=== PATIENT | male | born 1960 | race Two or more races ===

== ENCOUNTER 2021-04-26 06:44 | Inpatient (IN) | payer OTHER ==
[~2021-04-26] VITALS: Ht 175.3 cm; Wt 102.0 kg
[2021-04-26] MEDS ORDERED: FUROSEMIDE 40 MG/4 ML VIAL IV ONE ×2 (07:30→17:30)
[2021-04-26 08:20] LABS: Hematocrit 34.6 % (41.0-53.0); Mean Corpuscular Hemoglobin 27.7 pg (28.0-32.0); Mean Corpuscular Hgb Conc. 31.8 g/dL (32.0-36.0); Mean Corpuscular Volume 87.2 fL (80.0-100.0); Red Blood Cells 3.96 10^6/uL (4.5-5.90); Red Cell Distribution Width 17.7 % (11.8-14.3); White Blood Cell 14.2 10^3/uL (4.4-10.8)
[2021-04-26 08:26] LABS: Basophils % (manual) 0 (0.0-2.0); Blast Cells 0; Eosinophils % (manual) 0 (0-7); Metamyelocytes % 0; Myelocytes % 0; Promyelocytes % 0; Reactive Lymphocytes 0
[2021-04-26 08:36] LABS: Albumin 2.8 g/dL (3.4-5.0); Potassium 4.6 mmol/L (3.5-5.1)
[2021-04-26 08:43] LABS: BUN/Creatinine Ratio 10.8; Bilirubin, Total 0.6 mg/dL (0.2-1.0); Total Protein 6.1 g/dL (6.4-8.2)
[2021-04-26 08:45] LABS: Band Neutrophils % (manual) 5; Lymphocytes % (manual) 5 (10.0-50.0); Monocytes % (manual) 2 (0-12)
[2021-04-26 08:53] LABS: Calcium 5.4 mg/dL (8.5-10.1)
[2021-04-26] MEDS ORDERED: NITROGLYCERIN 0.4 MG SL TAB SL PRN (11:15)
[2021-04-26] MEDS ORDERED: MORPHINE SULFATE INJECTION 2 MG/ML SYRG IV PRN (11:15)
[2021-04-26] MEDS ORDERED: IPRATROPIUM BROM 0.5 MG/2.5ML INH SOL NEB PRN (11:30)
[2021-04-26] MEDS ORDERED: SODIUM CHL 0.9% 1000 ML BAG XX ONE (11:45)
[2021-04-26 13:15] VITALS: BP 142/84
[2021-04-26] MEDS ORDERED: ALBUTEROL SULF 2.5 MG/0.5ML(0.5%) NEB SOLN NEB SCH (14:00)
[2021-04-26 14:20] VITALS: BP 142/84
[2021-04-26] MEDS: SODIUM CHLOR 0.9% PF (SALINE LOCK) 10ML VIAL/SYR IV SCH ×2 (15:16→22:29)
[2021-04-26] MEDS ORDERED: CALCIUM GLUC 1,000mg/50ml-NS 50 ML IV ONE (15:45)
[2021-04-26] MEDS ORDERED: FURO40TA4 PO (16:07)
[2021-04-26] MEDS ORDERED: ISOS10TA45 PO (16:07)
[2021-04-26] MEDS ORDERED: METO25TA93 PO (16:07)
[2021-04-26 17:00] VITALS: BP 151/75
[2021-04-26] MEDS ORDERED: DEXTROSE (50%) 50ML SYRG IV ONE (17:30)
[2021-04-26] MEDS: ALBUTEROL SULF HFA 90MCG INH 200DOSE IN SCH (21:23)
[2021-04-26 22:00] VITALS: BP 149/86
[2021-04-26] MEDS ORDERED: BUDESONIDE (INHALATION) 0.5 MG/2 ML NEB NEB SCH (22:00)
[2021-04-26] MEDS: CARVEDILOL 3.125 MG TAB PO SCH (22:29)
[2021-04-26] MEDS: HEPARIN SODIUM (PORCINE) 5000 UNITS/ML 1ML VIAL SC SCH (22:30)
[2021-04-26] MEDS: FAMOTIDINE 20 MG TAB PO SCH (22:30)
[2021-04-27] MEDS ORDERED: ACETAMINOPHEN 325 MG TAB PO ONE (03:00)
[2021-04-27] MEDS ORDERED: DEXTROSE (50%) 50ML SYRG IV PRN (03:00)
[2021-04-27] MEDS ORDERED: ACCU-CHEK COMFORT CURVE STRIP VI SCH ×2 (04:00→06:15)
[2021-04-27 05:00] VITALS: BP 151/89
[2021-04-27] MEDS: SODIUM CHLOR 0.9% PF (SALINE LOCK) 10ML VIAL/SYR IV SCH ×3 (06:05→21:31)
[2021-04-27 07:26] LABS: Basophils # (auto) 0 10 ^3/uL (0-0.2); Basophils % (auto) 0.1 % (0.0-2.0); Eosinophils # (auto) 0.1 10 ^3/uL (0-0.8); Eosinophils % (auto) 0.9 % (0.0-7.0); Hematocrit 32.9 % (41.0-53.0); Hemoglobin 10.8 g/dL (13.5-17.5); Lymphocytes # (auto) 0.6 10 ^3/uL (0.4-5.4); Lymphocytes % (auto) 4.6 % (10.0-50.0); Mean Corpuscular Hemoglobin 28.4 pg (28.0-32.0); Mean Corpuscular Hgb Conc. 32.7 g/dL (32.0-36.0); Mean Corpuscular Volume 86.8 fL (80.0-100.0); Monocytes % (auto) 7.5 % (0.0-12.0); Neutrophils # (auto) 11.3 10 ^3/uL (1.6-8.6); Neutrophils % (auto) 86.9 % (37.0-80.0); Nucleated Red Blood Cells % 0.1 %; Red Blood Cells 3.79 10^6/uL (4.5-5.90); Red Cell Distribution Width 17.5 % (11.8-14.3)
[2021-04-27 07:44] LABS: Albumin 2.7 g/dL (3.4-5.0)
[2021-04-27 07:48] LABS: BUN/Creatinine Ratio 10.8; Bilirubin, Total 0.7 mg/dL (0.2-1.0)
[2021-04-27 08:00] VITALS: BP 126/61
[2021-04-27 08:35] LABS: Calcium 5.4 mg/dL (8.5-10.1); Potassium 6.6 mmol/L (3.5-5.1)
[2021-04-27] MEDS ORDERED: DEXTROSE (50%) 50ML SYRG IV ONE (08:45)
[2021-04-27] MEDS ORDERED: ALBUTEROL SULF 2.5 MG/0.5ML(0.5%) NEB SOLN NEB ONE (08:45)
[2021-04-27] MEDS ORDERED: SODIUM BICARBONATE 8.4% INJ 50ML SYRINGE IV ONE (08:45)
[2021-04-27] MEDS: ACCU-CHEK COMFORT CURVE STRIP VI SCH ×4 (08:52→20:03)
[2021-04-27 09:00] VITALS: BP 126/61
[2021-04-27] MEDS: ALBUTEROL SULF HFA 90MCG INH 200DOSE IN SCH ×3 (09:20→21:43)
[2021-04-27] MEDS: CARVEDILOL 3.125 MG TAB PO SCH (10:00)
[2021-04-27] MEDS: HEPARIN SODIUM (PORCINE) 5000 UNITS/ML 1ML VIAL SC SCH ×2 (10:00→21:36)
[2021-04-27] MEDS: CALCIUM ACETATE 667 MG CAP PO SCH ×2 (12:00→17:29)
[2021-04-27 13:10] VITALS: BP 152/83
[2021-04-27] MEDS: SODIUM ZIRCONIUM CYCL 10 GM PAK PO SCH ×2 (13:22→21:36)
[2021-04-27 17:00] VITALS: BP 130/70
[2021-04-27] MEDS ORDERED: ERGOCALCIFEROL 50,000 UNIT(1.25MG) CAP PO SCH (18:30)
[2021-04-27 21:29] VITALS: BP 146/79
[2021-04-27] MEDS: HYDROcodone-ACET 5/325MG TAB PO PRN (23:35)
[2021-04-28] MEDS: ACCU-CHEK COMFORT CURVE STRIP VI SCH ×6 (00:12→19:57)
[2021-04-28 05:00] VITALS: BP 142/69
[2021-04-28] MEDS: SODIUM CHLOR 0.9% PF (SALINE LOCK) 10ML VIAL/SYR IV SCH ×3 (05:51→21:25)
[2021-04-28] MEDS: SODIUM ZIRCONIUM CYCL 10 GM PAK PO SCH ×3 (05:52→21:25)
[2021-04-28 06:42] LABS: Basophils # (auto) 0 10 ^3/uL (0-0.2); Basophils % (auto) 0.1 % (0.0-2.0); Eosinophils # (auto) 0.1 10 ^3/uL (0-0.8); Eosinophils % (auto) 1.2 % (0.0-7.0); Lymphocytes # (auto) 0.6 10 ^3/uL (0.4-5.4); Lymphocytes % (auto) 6.4 % (10.0-50.0); Mean Corpuscular Hemoglobin 28.3 pg (28.0-32.0); Mean Corpuscular Hgb Conc. 32.1 g/dL (32.0-36.0); Mean Corpuscular Volume 88.1 fL (80.0-100.0); Monocytes # (auto) 0.8 10 ^3/uL (0-1.3); Monocytes % (auto) 8.4 % (0.0-12.0); Neutrophils # (auto) 7.9 10 ^3/uL (1.6-8.6); Neutrophils % (auto) 83.9 % (37.0-80.0); Red Blood Cells 3.52 10^6/uL (4.5-5.90); Red Cell Distribution Width 17.8 % (11.8-14.3); White Blood Cell 9.4 10^3/uL (4.4-10.8)
[2021-04-28 07:17] LABS: BUN/Creatinine Ratio 10.6
[2021-04-28] MEDS: ALBUTEROL SULF HFA 90MCG INH 200DOSE IN SCH ×2 (07:17→14:08)
[2021-04-28] MEDS: CALCIUM ACETATE 667 MG CAP PO SCH ×3 (08:41→19:20)
[2021-04-28 09:00] VITALS: BP 147/75
[2021-04-28] MEDS: ISOSORBIDE DINITRATE 10 MG TAB PO SCH (09:58)
[2021-04-28] MEDS: METOPROLOL SUCCINATE XL 50 MG TAB PO SCH (09:59)
[2021-04-28] MEDS: HEPARIN SODIUM (PORCINE) 5000 UNITS/ML 1ML VIAL SC SCH ×2 (10:03→21:26)
[2021-04-28 12:47] VITALS: BP 143/69
[2021-04-28] MEDS ORDERED: CALCIUM CHL 100MG/ML 1,000 MG in D5W 5% 100 ML IV ONE (14:15)
[2021-04-28 17:00] VITALS: BP 149/83
[2021-04-28] MEDS: HYDROcodone-ACET 5/325MG TAB PO PRN (19:57)
[2021-04-28] MEDS: FAMOTIDINE 20 MG TAB PO SCH (21:25)
[2021-04-28 22:00] VITALS: BP 152/76
[2021-04-29] MEDS: ACCU-CHEK COMFORT CURVE STRIP VI SCH ×6 (00:04→19:55)
[2021-04-29] MEDS: ALBUTEROL SULF HFA 90MCG INH 200DOSE IN SCH ×2 (00:13→06:21)
[2021-04-29 05:00] VITALS: BP 153/75
[2021-04-29] MEDS: SODIUM CHLOR 0.9% PF (SALINE LOCK) 10ML VIAL/SYR IV SCH ×3 (05:27→22:09)
[2021-04-29] MEDS: HYDROcodone-ACET 5/325MG TAB PO PRN (05:28)
[2021-04-29] MEDS: SODIUM ZIRCONIUM CYCL 10 GM PAK PO SCH ×3 (05:47→22:09)
[2021-04-29] MEDS ORDERED: SODIUM CHL 0.9% 1000 ML BAG XX ONE (07:00)
[2021-04-29] MEDS: CALCIUM ACETATE 667 MG CAP PO SCH ×3 (08:00→18:32)
[2021-04-29 08:45] VITALS: BP 136/71
[2021-04-29 09:11] LABS: Basophils # (auto) 0 10 ^3/uL (0-0.2); Basophils % (auto) 0.4 % (0.0-2.0); Eosinophils # (auto) 0.1 10 ^3/uL (0-0.8); Eosinophils % (auto) 1.2 % (0.0-7.0); Hematocrit 25.8 % (41.0-53.0); Hemoglobin 8.6 g/dL (13.5-17.5); Lymphocytes # (auto) 0.3 10 ^3/uL (0.4-5.4); Lymphocytes % (auto) 3.3 % (10.0-50.0); Mean Corpuscular Hemoglobin 29.1 pg (28.0-32.0); Mean Corpuscular Hgb Conc. 33.4 g/dL (32.0-36.0); Mean Corpuscular Volume 87.2 fL (80.0-100.0); Monocytes # (auto) 0.5 10 ^3/uL (0-1.3); Monocytes % (auto) 5.5 % (0.0-12.0); Neutrophils # (auto) 7.9 10 ^3/uL (1.6-8.6); Neutrophils % (auto) 89.6 % (37.0-80.0); Red Blood Cells 2.96 10^6/uL (4.5-5.90); Red Cell Distribution Width 17.8 % (11.8-14.3); White Blood Cell 8.8 10^3/uL (4.4-10.8)
[2021-04-29] MEDS: ISOSORBIDE DINITRATE 10 MG TAB PO SCH (09:22)
[2021-04-29] MEDS: METOPROLOL SUCCINATE XL 50 MG TAB PO SCH (09:23)
[2021-04-29] MEDS: HEPARIN SODIUM (PORCINE) 5000 UNITS/ML 1ML VIAL SC SCH ×2 (09:24→22:10)
[2021-04-29 09:32] LABS: Potassium 4.8 mmol/L (3.5-5.1)
[2021-04-29 09:50] LABS: Albumin 2.6 g/dL (3.4-5.0); BUN/Creatinine Ratio 10.5; Bilirubin, Total 0.8 mg/dL (0.2-1.0); Calcium 6.1 mg/dL (8.5-10.1); Magnesium 2.6 mg/dL (1.6-2.6); Total Protein 5.9 g/dL (6.4-8.2)
[2021-04-29] MEDS ORDERED: FUROSEMIDE 100 MG/10ML VIAL IV ONE (12:45)
[2021-04-29 13:00] VITALS: BP 128/71
[2021-04-29] MEDS ORDERED: LORazepam 2MG/ML-1ML VIAL IV PRN (16:15)
[2021-04-29] MEDS: MORPHINE SULFATE INJECTION 2 MG/ML SYRG IV PRN ×2 (16:41→21:23)
[2021-04-29 17:00] VITALS: BP 154/73
[2021-04-29 20:00] VITALS: BP 156/76
[2021-04-29] MEDS: ALBUTEROL SULF HFA 90MCG INH 200DOSE IN PRN (20:26)
[2021-04-29 20:56] VITALS: BP 155/76
[2021-04-29] MEDS ORDERED: EPOETIN ALFA-EPBX 10,000 UNIT/1ML VIAL SC ONE (21:00)
[2021-04-30] MEDS: ACCU-CHEK COMFORT CURVE STRIP VI SCH ×4 (00:10→12:00)
[2021-04-30] MEDS ORDERED: hydrALAZINE HCL 20 MG/ML VL IV PRN (05:15)
[2021-04-30 05:20] VITALS: BP 187/75
[2021-04-30] MEDS: SODIUM CHLOR 0.9% PF (SALINE LOCK) 10ML VIAL/SYR IV SCH ×2 (05:30→16:13)
[2021-04-30] MEDS: SODIUM ZIRCONIUM CYCL 10 GM PAK PO SCH ×2 (05:32→14:00)
[2021-04-30] MEDS: ALBUTEROL SULF HFA 90MCG INH 200DOSE IN PRN (08:03)
[2021-04-30] MEDS: CALCIUM ACETATE 667 MG CAP PO SCH ×2 (08:11→12:00)
[2021-04-30] MEDS: ISOSORBIDE DINITRATE 10 MG TAB PO SCH (08:14)
[2021-04-30] MEDS: METOPROLOL SUCCINATE XL 50 MG TAB PO SCH (08:14)
[2021-04-30] MEDS: HEPARIN SODIUM (PORCINE) 5000 UNITS/ML 1ML VIAL SC SCH (08:18)
[2021-04-30] MEDS ORDERED: FUROSEMIDE 100 MG/10ML VIAL IV SCH (10:00)
[2021-04-30] MEDS ORDERED: BUDESONIDE (INHALATION) 0.5 MG/2 ML NEB NEB ONE (10:45)
[2021-04-30] MEDS ORDERED: cloNIDine HCL 0.1 MG TAB PO ONE (10:45)
[2021-04-30 12:27] LABS: Basophils # (auto) 0 10 ^3/uL (0-0.2); Basophils % (auto) 0.1 % (0.0-2.0); Eosinophils # (auto) 0.1 10 ^3/uL (0-0.8); Eosinophils % (auto) 1.3 % (0.0-7.0); Hematocrit 26.2 % (41.0-53.0); Hemoglobin 8.7 g/dL (13.5-17.5); Lymphocytes # (auto) 0.2 10 ^3/uL (0.4-5.4); Lymphocytes % (auto) 3.6 % (10.0-50.0); Mean Corpuscular Hemoglobin 28.4 pg (28.0-32.0); Mean Corpuscular Hgb Conc. 33.1 g/dL (32.0-36.0); Monocytes # (auto) 0.4 10 ^3/uL (0-1.3); Monocytes % (auto) 7.6 % (0.0-12.0); Neutrophils % (auto) 87.4 % (37.0-80.0); Nucleated Red Blood Cells % 0.1 %; Red Blood Cells 3.05 10^6/uL (4.5-5.90); Red Cell Distribution Width 17.6 % (11.8-14.3); White Blood Cell 5.8 10^3/uL (4.4-10.8)
[2021-04-30 12:44] LABS: BUN/Creatinine Ratio 10.1; Calcium 6.8 mg/dL (8.5-10.1); Potassium 4.1 mmol/L (3.5-5.1)
[2021-04-30 13:15] VITALS: BP 150/82
[2021-05-02] MEDS ORDERED: ASPI81CH74 PO (04:12)
[2021-05-02] MEDS ORDERED: APIX5TAB PO (04:12)
[2021-05-02 12:17] LABS: Hepatitis A Ab IgM Negative
[2021-05-02 12:56] LABS: Hepatitis B Core IgM Negative
[2021-05-02 13:10] LABS: Hepatitis C Antibody Negative (Negative)
== END 2021-04-30 16:10 | disposition home or self-care (01) | DRG 280 ==
LOC: ER 06:44 → TELE 11:01 → TELE-EAST 12:59
PROVIDERS: ADMIT Internal Medicine; ATTEND Internal Medicine
PROC: 5A1D70Z Performance of Urinary Filtration, Intermittent, Less than 6 Hours Per Day (ICD-10-PCS; principal; 2021-04-27)
PROC: 5A09357 Assistance with Respiratory Ventilation, Less than 24 Consecutive Hours, Continuous Positive Airway Pressure (ICD-10-PCS; 2021-04-29)
PROC: 5A1D70Z Performance of Urinary Filtration, Intermittent, Less than 6 Hours Per Day (ICD-10-PCS; 2021-04-30)
PROC: 5A09357 Assistance with Respiratory Ventilation, Less than 24 Consecutive Hours, Continuous Positive Airway Pressure (ICD-10-PCS; 2021-04-30)
DX: I13.2 Hypertensive heart and chronic kidney disease with heart failure and with stage 5 chronic kidney disease, or end stage renal disease (principal); J96.20 Acute and chronic respiratory failure, unspecified whether with hypoxia or hypercapnia; I21.A1 Myocardial infarction type 2; J12.82 Pneumonia due to coronavirus disease 2019; U07.1 COVID-19; E43 Unspecified severe protein-calorie malnutrition; I50.43 Acute on chronic combined systolic (congestive) and diastolic (congestive) heart failure; N18.6 End stage renal disease; J44.0 Chronic obstructive pulmonary disease with (acute) lower respiratory infection; D63.1 Anemia in chronic kidney disease; E83.51 Hypocalcemia; E83.39 Other disorders of phosphorus metabolism; I25.10 Atherosclerotic heart disease of native coronary artery without angina pectoris; J44.9 Chronic obstructive pulmonary disease, unspecified; Z20.822 Contact with and (suspected) exposure to COVID-19; E87.5 Hyperkalemia; E87.70 Fluid overload, unspecified; E11.21 Type 2 diabetes mellitus with diabetic nephropathy; E11.22 Type 2 diabetes mellitus with diabetic chronic kidney disease; Z99.2 Dependence on renal dialysis; Z68.33 Body mass index [BMI] 33.0-33.9, adult; Z87.891 Personal history of nicotine dependence; Z95.1 Presence of aortocoronary bypass graft; Z86.16 Personal history of COVID-19; Z88.8 Allergy status to other drugs, medicaments and biological substances
CPT/HCPCS: 36415; 71045; 80048; 80053; 80074; 82306; 82962; 83735; 83880; 83970; 84100; 84484; 85007; 85025; 85027; 87081; 87426; 90935; 93005; 93306; 94640; 94660; 94762; 96374; G0378; J1642; J7060